=== PATIENT | female | born 1965 | race African-American/Black ===

== ENCOUNTER 2019-10-17 18:36 | Emergency (ER) | payer OTHER ==
[~2019-10-17] VITALS: Ht 172.7 cm; Wt 74.8 kg
[~2019-10-17 18:36] MED LIST: B-50 COMPLEX1 EAC1 PO; IBUPROFEN 600600 M1 PO; NEURONTIN 300300 M1 PO; NORCO 5-325 TA1 EACH PO
[2019-10-17 20:14] LABS: CALCIUM 8.8 mg/dL (8.5-10.1); CREATININE 0.8 mg/dL (0.6-1.0)
[2019-10-17 20:16] LABS: POTASSIUM 4.7 mmol/L (3.5-5.1)
[2019-10-17 20:24] LABS: ALBUMIN 3.8 g/dL (3.4-5.0); TOTAL BILIRUBIN 0.6 mg/dL (0.2-1.0)
[2019-10-17] MEDS ORDERED: ONDANSETRON HCL4 M2 PO (20:28)
[2019-10-17] MEDS ORDERED: PROMETH-CODEIN 65 ML PO (20:28)
[2019-10-17 20:50] VITALS: BP 122/87
== END 2019-10-17 20:45 | disposition home or self-care (01) ==
LOC: ER 18:36
PROVIDERS: Physician Assistant
DX: R05 Cough (principal); R19.7 Diarrhea, unspecified; R51 Headache; Z98.84 Bariatric surgery status; Z79.899 Other long term (current) drug therapy; Z91.041 Radiographic dye allergy status; Z20.828 Contact with and (suspected) exposure to other viral communicable diseases; Z90.49 Acquired absence of other specified parts of digestive tract